=== PATIENT | male | born 1970 | race Caucasian/White ===

== ENCOUNTER 2024-01-02 11:01 | Observation (INO) ==
[2024-01-02 12:12] LABS: Basophils # (auto) 0.08 K/uL (0.00-0.20); Basophils % (auto) 0.9 %; Eosinophils # (auto) 0.04 K/uL (0.00-0.50); Eosinophils % (auto) 0.4 %; Hematocrit (blood only) 47.8 % (42.0-52.0); Hemoglobin 16.8 g/dl (14.0-18.0); Immature Granulocytes # (auto) 0.02 K/uL (0.01-0.20); Immature Granulocytes % (auto) 0.2 %; Lymphocytes # (auto) 1.74 K/uL (1.20-3.40); Lymphocytes % (auto) 19.3 %; Mean Corpuscular Hemoglobin 31.3 pg (25.0-34.0); Mean Corpuscular Hgb Conc 35.1 g/dL (32.0-36.0); Mean Corpuscular Volume 89.2 fL (80.0-100.0); Mean Platelet Volume 10.5 fL (9.4-12.4); Monocytes # (auto) 0.75 K/uL (0.11-0.59); Monocytes % (auto) 8.3 %; Neutrophils # (auto) 6.39 K/uL (1.40-6.50); Neutrophils % (auto) 70.9 %; Platelet Count 264 K/uL (130-400); RDW Coefficient of Variation 12.9 % (11.5-14.5); RDW Standard Deviation 42.1 fL (36.4-46.3); Red Blood Count 5.36 M/uL (4.70-6.10); White Blood Count 9.02 K/ul (4.8-10.8)
[2024-01-02 12:31] LABS: Albumin Globulin Ratio 1.7 (0.9-2); Albumin Level 5.1 gm/dl (3.4-5.0); BUN Creatinine Ratio 21.9 (10-20); Bilirubin,Total 0.7 mg/dl (0.2-1.0); Calcium 10.5 mg/dl (8.6-10.3); Creatinine Clr Calc Pharmacy 110.8 ml/min; Est GFR (African American) 94.8 ml/min; Est GFR (Non-African American) 81.8 ml/min; Total Protein 8.1 gm/dl (6.0-8.3)
--- NOTE | 2024-01-02 12:33 | Emergency Department Note ---
Impression & Plan Near syncope, Shortness of breath ED Provider Note HISTORY OF PRESENT ILLNESS: Patient is a 53-year-old male presenting with lightheadedness and shortness of breath. Patient reports for the last week he has been having episodes in which she gets short of breath with very minimal exertion and feels very lightheaded. Reports that he gets very diaphoretic during these episodes. Reports that 48 hours ago, he was using an ax to cut down a tree and became very diaphoretic, short of breath and lightheaded like he was going to pass out. Reports his symptoms lasted for about 30 to 45 minutes. He denies any chest pain with the episodes. He denies any history of cardiac stents. He states that he was in the shower today when he had another episode of feeling very lightheaded like he was going to pass out and very short of breath. Symptoms lasted for about an hour, and he decided to come to the emergency department. On arrival, he is symptom-free. He denies any DVT or PE history. He is not on any anticoagulation. He does report a significant family history of his father having a heart attack in his early 40s. Patient has a history of hypertension and hyperlipidemia. He denies any recent changes in medications. He is a daily smoker. Denies any recent headache or changes in vision. Denies any numbness or tingling or weakness in extremities. Denies any abdominal pain, nausea or vomiting. Patient reports he has not had a stress test in over 20 years. ROS: as above PHYSICAL EXAM: Constitutional: Patient appears in no acute distress. HENT: Head: Normocephalic and atraumatic. Eyes: EOMI, PERRL Mouth/Throat: Mucous membranes moist. Neck: Trachea midline. Neck supple. Cardiovascular: RRR, No murmurs, rubs or gallops. Intact distal pulses. Pulmonary/Chest: No respiratory distress. Breath sounds clear and equal bilaterally. No wheezes or rales Abdominal: Abdomen soft, no tenderness, rebound or guarding. Musculoskeletal: No edema, tenderness or deformity noted. Skin: Warm and dry. No rash, erythema, pallor or cyanosis Psychiatric: Appropriate mood and affect for situation. Neurological: Alert and keenly responsive. CN II-XII grossly intact, moving all extremities equally and fully. MDM: - Vitals signs stable. - History obtained via patient. History as above. - Chronic conditions affecting care: HTN; HLD - Differential diagnoses include, but are not limited to: Acute coronary syndrome; pulmonary embolism; dissection; tension pneumothorax; esophageal rupture; pneumonia - Order placed for continuous cardiac monitoring. At this time, monitor showed rate of 84 bpm with normal sinus rhythm, per my interpretation. - External medical records reviewed. - EKG interpreted by myself showed normal sinus rhythm. Rate 73 bpm. QT 354. No acute ischemic changes. - Laboratory workup interpreted by myself showed normal WBC; normal PT/INR; negative dimer; normal troponin; stable electrolytes; negative Lyme disease - COVID/flu/RSV negative - CXR negative for pneumonia, per my interpretation - Considered CTA chest for PE or dissection, but patient is low risk by Wells criteria and has a negative D-dimer. So though CT was considered was not obtained. - HEART score 5 (History +2 highly suspicious; EKG +0; Age +1; Risk factors +2; Initial troponin +0), amounting to a moderate score. - Repeat troponin within normal limits. - Discussed results with the patient. He has not had a stress test or echocardiogram of his heart performed in a number of years. He does have a moderate HEART score and his story is slightly concerning. Will admit for further workup. Patient was agreeable to this plan. - Discussion was had with manager rn case about patient's case and need for admission - Hospitalist consulted for admission - Patient admitted to [facility] service for further evaluation and management. ASSESSMENT AND PLAN: Diagnosis: Near syncope; shortness of breath Plan: admit Past Med/Surg History Problem List (Updated 01/02/24 @ 16:07 by Lore Pyle MD) Shortness of breath (Acute) Near syncope (Acute) Social History Smoking Status: Never smoker Feels Safe at Home: Yes Allergies Allergies Allergy/AdvReac Type Severity Reaction Status Date / Time No Known Allergies Allergy Unverified 01/02/24 14:50 Home Meds Home Medications Medication Instructions Recorded Confirmed baclofen 20 mg tablet 20 mg PO 01/02/24 01/02/24 escitalopram oxalate 20 mg tablet 20 mg PO QA 01/02/24 01/02/24 lisinopril 10 mg tablet 10 mg PO QAM 01/02/24 01/02/24 multivitamin 1 tab PO QAM 01/02/24 01/02/24 pravastatin 20 mg tablet 20 mg PO HS 01/02/24 01/02/24 Results & Data (ED) Vital Signs Vital Signs - 24 hr 01/02/24 11:12 01/02/24 12:26 01/02/24 12:26 Temperature 36.9 C Temperature Source Temporal Artery Scan Pulse Rate 82 Pulse Rate [Apical] 68 Pulse Rhythm Regular Pulse Strength Normal Respiratory Rate 20 17 Respiratory Effort / Characteristics Non-Labored Spontaneous Non-Labored Spontaneous Respiratory Depth Normal Normal Respiratory Pattern Regular Blood Pressure 128/90 Blood Pressure [Right Arm] 137/96 Blood Pressure Mean 102 Blood Pressure Mean [Right Arm] 109 Blood Pressure Position Sitting Blood Pressure Position [Right Arm] Semi-fowlers Pulse Oximetry 92 100 100 Oxygen Delivery Method Room Air Room Air Room Air Sepsis Recent Fever Within 48 Hours No Sepsis New/Unexplained Change in Mental Status N/A Sepsis Action Taken by Nursing No Action Required 01/02/24 12:26 01/02/24 12:34 01/02/24 14:33 Temperature Temperature Source Pulse Rate 67 65 Pulse Rate [Apical] 69 Pulse Rhythm Pulse Strength Respiratory Rate 22 17 Respiratory Effort / Characteristics Non-Labored Spontaneous Respiratory Depth Normal Respiratory Pattern Blood Pressure Blood Pressure [Right Arm] 151/106 H Blood Pressure Mean Blood Pressure Mean [Right Arm] 121 Blood Pressure Position Blood Pressure Position [Right Arm] Pulse Oximetry 100 98 Oxygen Delivery Method Room Air Room Air Sepsis Recent Fever Within 48 Hours Sepsis New/Unexplained Change in Mental Status Sepsis Action Taken by Nursing Laboratory Data 01/02/24 11:55 01/02/24 11:55 Lab Results 01/02/24 01/02/24 01/02/24 Range/Units 11:55 11:55 11:57 WBC 9.02 (4.8-10.8) K/ul RBC 5.36 (4.70-6.10) M/uL Hgb 16.8 (14.0-18.0) g/dl Hct 47.8 (42.0-52.0) % MCV 89.2 (80.0-100.0) fL MCH 31.3 (25.0-34.0) pg MCHC 35.1 (32.0-36.0) g/dL RDW Std Deviation 42.1 (36.4-46.3) fL RDW Coeff of Donald 12.9 (11.5-14.5) % Plt Count 264 (130-400) K/uL MPV 10.5 (9.4-12.4) fL Immature Gran % (Auto) 0.2 % Neut % (Auto) 70.9 % Lymph % (Auto) 19.3 % [place] % (Auto) 8.3 % Eos % (Auto) 0.4 % Baso % (Auto) 0.9 % Neut # (Auto) 6.39 (1.40-6.50) K/uL Lymph # (Auto) 1.74 (1.20-3.40) K/uL [place] # (Auto) 0.75 H (0.11-0.59) K/uL Eos # (Auto) 0.04 (0.00-0.50) K/uL Baso # (Auto) 0.08 (0.00-0.20) K/uL Immature Gran # (Auto) 0.02 (0.01-0.20) K/uL PT 10.9 (9.0-12.0) Seconds INR 1.0 (0.9-1.1) APTT 25 (21-31) Seconds PTT Ratio 0.9 D-Dimer 240 Cancelled (0-500) ug/L FEU Sodium 138 (136-145) mmol/L Potassium 4.0 (3.5-5.1) mmol/L Chloride 107 (98-107) mmol/L Carbon Dioxide 23 (21-32) mmol/L Anion Gap 8 (3-11) BUN 23 (6-23) mg/dl Creatinine 1.05 (0.6-1.4) mg/dl Est Cr Clr Drug Dosing 110.8 ml/min Est GFR ( Amer) 94.8 ml/min Est GFR (Non-Af Amer) 81.8 ml/min BUN/Creatinine Ratio 21.9 H (10-20) Glucose 114 H (70-99(Fasting)) mg/dl Calcium 10.5 H (8.6-10.3) mg/dl Total Bilirubin 0.7 (0.2-1.0) mg/dl AST 26 (13-39) U/L ALT 27 (7-52) U/L Alkaline Phosphatase 48 (34-104) U/L Troponin I High Sens 2.6 (0-20) pg/ml Total Protein 8.1 (6.0-8.3) gm/dl Albumin 5.1 H (3.4-5.0) gm/dl Globulin 3.0 (2.5-4.0) gm/dl Albumin/Globulin Ratio 1.7 (0.9-2) Lyme Disease Screen Negative (Negative) SARS-CoV-2 (PCR) NEGATIVE (Negative) Influenza Type A (PCR) Negative (Neg) Influenza Type B (PCR) Negative (Neg) RSV (RT-PCR) Negative (Neg) 01/02/24 Range/Units 14:35 WBC (4.8-10.8) K/ul RBC (4.70-6.10) M/uL Hgb (14.0-18.0) g/dl Hct (42.0-52.0) % MCV (80.0-100.0) fL MCH (25.0-34.0) pg MCHC (32.0-36.0) g/dL RDW Std Deviation (36.4-46.3) fL RDW Coeff of Donald (11.5-14.5) % Plt Count (130-400) K/uL MPV (9.4-12.4) fL Immature Gran % (Auto) % Neut % (Auto) % Lymph % (Auto) % [place] % (Auto) % Eos % (Auto) % Baso % (Auto) % Neut # (Auto) (1.40-6.50) K/uL Lymph # (Auto) (1.20-3.40) K/uL [place] # (Auto) (0.11-0.59) K/uL Eos # (Auto) (0.00-0.50) K/uL Baso # (Auto) (0.00-0.20) K/uL Immature Gran # (Auto) (0.01-0.20) K/uL PT (9.0-12.0) Seconds INR (0.9-1.1) APTT (21-31) Seconds PTT Ratio D-Dimer (0-500) ug/L FEU Sodium (136-145) mmol/L Potassium (3.5-5.1) mmol/L Chloride (98-107) mmol/L Carbon Dioxide (21-32) mmol/L Anion Gap (3-11) BUN (6-23) mg/dl Creatinine (0.6-1.4) mg/dl Est Cr Clr Drug Dosing ml/min Est GFR ( Amer) ml/min Est GFR (Non-Af Amer) ml/min BUN/Creatinine Ratio (10-20) Glucose (70-99(Fasting)) mg/dl Calcium (8.6-10.3) mg/dl Total Bilirubin (0.2-1.0) mg/dl AST (13-39) U/L ALT (7-52) U/L Alkaline Phosphatase (34-104) U/L Troponin I High Sens 3.1 (0-20) pg/ml Total Protein (6.0-8.3) gm/dl Albumin (3.4-5.0) gm/dl Globulin (2.5-4.0) gm/dl Albumin/Globulin Ratio (0.9-2) Lyme Disease Screen (Negative) SARS-CoV-2 (PCR) (Negative) Influenza Type A (PCR) (Neg) Influenza Type B (PCR) (Neg) RSV (RT-PCR) (Neg) Imaging Data Radiologist's Impression: Chest X-Ray 01/02/24 11:15 XR chest 1V portable CLINICAL HISTORY: Chest pain, nonspecific TECHNIQUE: Single frontal radiograph of the chest was obtained. Comparison: None available at the time of this dictation. FINDINGS: No lines and tubes are seen. The cardiomediastinal silhouette is normal. The lungs are clear. No evidence of pleural effusion or pneumothorax. IMPRESSION: No acute chest disease. ACT 112: Negative or not required by law. Electronically signed by: Quincy Cornelius M.D. 01/02/2024 12:53 PM Discharge Plan Visit Data Chief Complaint: Lethargic Stated Complaint: LETHARGIC, WEAKNESS ED Provider: Lore Pyle Discharge Problem: Near syncope, Shortness of breath Forms Stand Alone Forms: My [facility] [address] Prescriptions Prescriptions: No Action multivitamin Tablet 1 tab PO QAM baclofen 20 mg tablet 20 mg PO HS lisinopril 10 mg tablet 10 mg PO QAM pravastatin 20 mg tablet 20 mg PO HS escitalopram oxalate 20 mg tablet 20 mg PO QAM Referrals Referrals: PCP,NO [Physician] -
[2024-01-02 12:37] LABS: Troponin I High Sensitivity 2.6 pg/ml (0-20)
[2024-01-02 12:42] LABS: D Dimer 240 ug/L FEU (0-500); Partial Thromboplastin Ratio 0.9; Partial Thromboplastin Time 25 Seconds (21-31); Prothrombin Time 10.9 Seconds (9.0-12.0)
[2024-01-02 12:43] LABS: Influenza A virus by PCR Negative (Neg); Influenza B virus by PCR Negative (Neg); RSV by PCR Negative (Neg); SARS CoV2 RNA(COVID-19) Ceph NEGATIVE (Negative)
--- NOTE | 2024-01-02 12:55 | XRay Report ---
XR chest 1V portable CLINICAL HISTORY: Chest pain, nonspecific TECHNIQUE: Single frontal radiograph of the chest was obtained. Comparison: None available at the time of this dictation. FINDINGS: No lines and tubes are seen. The cardiomediastinal silhouette is normal. The lungs are clear. No evid ence of pleural effusion or pneumothorax. IMPRESSION: No acute chest disease. ACT 112: Negative or not required by law. Electronically signed by: Quincy Cornelius M.D. 01/02/2024 12:53 PM
--- NOTE | 2024-01-02 16:25 | History & Physical Report ---
Date of Service January 02, 2024 Assessment & Plan (1) Near syncope: Plan: This is a 53-year-old male with PMH of HTN, hyperlipidemia, generalized anxiety disorder, chronic back pain and other medical problems listed below who presents with exertional near syncope. Two episodes of sudden onset lightheadedness, diaphoresis, fatigue and intermittent palpitations with exertion over the past few days, resolves with rest H/o HTN, HLD, + family hx WI (dad in his 50s) EKG with NSR, no ST changes. HS troponin negative x 2 Observe overnight given exertional nature of symptoms, risk factors Orthostatics, 2D echo, trend troponin, a1c and lipids in AM, routine cards consult TSH, anaplasma pending (lyme screen negative) (2) HTN (hypertension): Plan: Elevated in ED, admittedly anxious. Continue evening lisinopril, ? withdrawal component (3) HLD (hyperlipidemia): Plan: Continue pravastatin HS (4) Alcohol use disorder: Plan: Endorsing 5 shots/night over the past 6 months. Denies issues with withdrawal in the past but does not know last day he did not drink. AWSS protocol, ativan PRN (5) Anxiety: Plan: Worsening over past few months, drinking more alcohol. Continue SSRI. Discussed following up with PCP following hospitalization (6) Chronic back pain: Plan: At baseline. Continue baclofen HS DVT Ppx: SQ heparin Code status: FULL PCP: Jose Dispo: SQ heparin Patient seen in collaboration with Dr. Blanco. Please see addendum. I spent a total of 75 minutes coordinating, documenting, and providing care for this patient excluding time spent in the performance of separately billed services. History of Present Illness Chief Complaint: Near syncope Primary Care Provider: Sidney Garcia This is a 53-year-old male with PMH of HTN, hyperlipidemia, generalized anxiety disorder, chronic back pain, alcohol use and other medical problems listed below who presents with exertional near syncope. Started to feel poorly 2 days ago whe n trying to remove a tree stump. Developed sudden sweats, lightheadedness and fatigue and had to sit down. No CP, palpitations or nausea. Sat down and symptoms resolved within the hour. Today patient was getting into the shower and he felt lightheaded and shaky. No fever, chills, nausea, vomiting, abd pain, dysuria or constipation. Had a few episodes of diarrhea since yesterday. Having more stress since retiring at the start of 2023 and has feeling more anxious. Endorses a tick bite a month ago but says he tested negative for lyme. Vapes nicotine. Drinks 2 mixed drinks / night, approx 5 shots. Does not remember his last day without alcohol. Allergies Allergy/AdvReac Type Severity Reaction Status Date / Time No Known Allergies Allergy Unverified 01/02/24 14:50 Home Medications Medication Instructions Recorded Confirmed Type baclofen 20 mg tablet 20 mg PO HS 01/02/24 01/02/24 History escitalopram oxalate 20 mg tablet 20 mg PO QAM 01/02/24 01/02/24 History lisinopril 10 mg tablet 10 mg PO HS 01/02/24 01/02/24 History multivitamin 1 tab PO HS 01/02/24 01/02/24 History pravastatin 20 mg tablet 20 mg PO HS 01/02/24 01/02/24 History Past Med/Surg History Problem List (Updated 01/02/24 @ 17:29 by Samia Vásquez PA-C) Alcohol use disorder Anxiety Chronic back pain Tobacco use HLD (hyperlipidemia) HTN (hypertension) Shortness of breath (Acute) Near syncope (Acute) Surgical History (Updated 01/02/24 @ 17:01 by Samia Vásquez PA-C) History of dental surgery Hx of appendectomy Family History Other Heart disease Social History Tobacco Type: E-cigarettes / Vaping Hx Alcohol Use: Yes Alcohol type: hard liquor Alcohol type Comment: 5 shots a night Hx Substance Use: No Feels Safe at Home: Yes Review of Systems Review of Systems: At least ten systems reviewed and negative except as noted in the HPI. Physical Exam Physical Exam: General Appearance: WD/WN, vitals as above, NAD, sitting up in bed, pleasant, conversing easily, anxious, flushed Head: normocephalic, atraumatic Eyes: normal inspection, PERRL, conjunctivae normal, anicteric sclerae ENT: external ear and nose normal, oropharynx normal Neck: normal visual inspection, trachea midline, no thyromegaly Respiratory: normal respiratory effort, lungs clear to auscultation, no wheeze, rales, rhonchi. No accessory muscle use Cardiovascular: regular rate, rhythm, no murmur, normal peripheral pulses, no BLE edema. Vessels: no JVD Chest: normal inspection of chest Abdomen/GI: normal bowel sounds, soft, nontender, no hepatosplenomegaly Extremities/Musculoskeletal: no cyanosis or clubbing, extremities motor strength 5/5 Neurologic: PERRL, EOMI, accommodation nl, no face palsy, no dysarthria, CN's II-XI intact bilaterally and moves all extremities Psychiatric: A+Ox3, anxious Skin: no rashes, normal color, warm/dry Results & Data Results & Data Vital Signs (Past 12 Hours) Vital Signs Temp Pulse Pulse Resp BP BP Pulse Ox 01/02/24 16:00 76 16 98 01/02/24 15:00 85 19 92 01/02/24 14:33 72 16 151/106 H 99 01/02/24 14:33 69 17 151/106 H 98 01/02/24 14:00 64 16 98 01/02/24 13:03 78 19 97 01/02/24 12:42 71 22 99 01/02/24 12:34 65 01/02/24 12:26 67 22 100 01/02/24 12:26 68 17 137/96 100 01/02/24 12:26 100 01/02/24 11:12 36.9 C 82 20 128/90 92 O2 Del Method 01/02/24 16:00 01/02/24 15:00 01/02/24 14:33 01/02/24 14:33 Room Air 01/02/24 14:00 01/02/24 13:03 01/02/24 12:42 01/02/24 12:34 01/02/24 12:26 Room Air 01/02/24 12:26 Room Air 01/02/24 12:26 Room Air 01/02/24 11:12 Room Air Laboratory Results Short CBC 01/02/24 Range/Units 11:55 WBC 9.02 (4.8-10.8) K/ul Hgb 16.8 (14.0-18.0) g/dl Hct 47.8 (42.0-52.0) % Plt Count 264 (130-400) K/uL BMP 01/02/24 11:55 Sodium 138 Potassium 4.0 Chloride 107 Carbon Dioxide 23 BUN 23 Creatinine 1.05 Glucose 114 H Calcium 10.5 H Liver Function 01/02/24 Range/Units 11:55 Total Bilirubin 0.7 (0.2-1.0) mg/dl AST 26 (13-39) U/L ALT 27 (7-52) U/L Alkaline Phosphatase 48 (34-104) U/L Albumin 5.1 H (3.4-5.0) gm/dl Diagnostic Findings Chest X-Ray 01/02/24 11:15 XR chest 1V portable CLINICAL HISTORY: Chest pain, nonspecific TECHNIQUE: Single frontal radiograph of the chest was obtained. Comparison: None available at the time of this dictation. FINDINGS: No lines and tubes are seen. The cardiomediastinal silhouette is normal. The lungs are clear. No evidence of pleural effusion or pneumothorax. IMPRESSION: No acute chest disease. ACT 112: Negative or not required by law. Electronically signed by: Quincy Cornelius M.D. 01/02/2024 12:53 PM Supervising Physician Co-Signing Physician Notes 53 yo M w/ pmh of HTN, HLD, anxiety, alcohol abuse (5 shots of rum a day) presented to the ED w/ c/o shakiness/palpitation/lightheadedness/sob/near syncope x 2 since Saturday both of which during 5-10 minutes into activity (chopping wood) and resolved after resting 20-30 minutes. He didn't fall or lost consciousness. Denies chest pain or discomfort. Has significant family h/o father having [place] at age 48. labs and CXR wnl Trop x 2 neg, trend trops,get echo. ortho vitals. NPO midnight. Card consult. c/w tele monitoring. EKG and nitro prn w/ chest pain. Lipid profile and a1c in AM. AWSS protocol. c/w home BP and anxiety medications. on Exam: GENERAL: Alert and oriented x3. NAD, on RA. HEENT: No pallor, no icterus. Pupils equal, round and reactive to light. Oral mucosa moist. NECK: No JVD, no neck masses. HEART: S1 and S2 heard. Regular rate and rhythm. No murmur, no gallop. RESPIRATORY SYSTEM: Normal AP diameter. No accessory muscle use. No wheezing, no crackles. ABDOMEN: Soft, bowel sounds present, nontender, no distention. CENTRAL NERVOUS SYSTEM: No facial droop. Speech is clear. Obeys simple commands. Moves extremities. EXTREMITIES: No edema, no erythema seen. I have seen and examined the patient and have discussed the case with the provider above. I agree with the assessment and plan as stated.
[2024-01-02] MEDS ORDERED: LORazepam 1 MG TAB PO PRN (17:21)
[2024-01-02 17:37] LABS: Troponin I High Sensitivity 2.7 pg/ml (0-20)
--- NOTE | 2024-01-02 17:49 | Electrocardiogram Report ---
Test Reason : Blood Pressure : / mmHG Vent. Rate : 073 BPM Atrial Rate : 073 BPM P-R Int : 148 ms QRS Dur : 078 ms QT Int : 354 ms P-R-T Axes : 068 015 037 degrees QTc Int : 389 ms Normal sinus rhythm Normal ECG No previous ECGs available Confirmed by Federico He ([id number]) on 01/02/2024 5:49:33 PM Referred By: REFERRED SELF Confirmed By:Cj He
[2024-01-02 17:57] LABS: Thyroid Stimulating Hormone 1.072 uIu/ml (0.300-4.500)
[2024-01-02] MEDS ORDERED: ACETAMINOPHEN 325 MG TAB PO PRN (17:58)
[2024-01-02] MEDS ORDERED: POLYETHYLENE (MIRALAX) 17 GM PACK PO PRN (17:58)
[2024-01-02 18:24] LABS: Appearance Urine Clear (Clear); Bacteria Urine Automated None Seen (None Seen); Bilirubin Urine Negative (Negative); Blood Urine Negative (Negative); Cast Urine Automated 0-2 /lpf (0-2); Color Urine Dark Yellow; Epithelial Cell Urine Auto 0-2 /hpf (0-2); Glucose Urine UA Negative (Negative); Ketones Urine 2+ (Negative); Leukocyte Esterase Urine Trace (Negative); Nitrite Urine Negative (Negative); Protein Urine Trace (Negative); Specific Gravity Urine 1.031 (1.000-1.030); Urobilinogen Urine Negative (Negative); WBC Urine Automated 0-5 /hpf (0-5)
[2024-01-02 18:40] LABS: Calcium Oxalate Crystals Urine Present (None Prsent)
[2024-01-02 18:41] LABS: Mucus Urine Present (None Prsent)
[2024-01-02] MEDS: MULTIVITAMIN TAB PO SCH (21:06)
[2024-01-02] MEDS: PRAVASTATIN SOD 20 MG TAB PO SCH (21:06)
[2024-01-02] MEDS: BACLOFEN 20 MG TAB PO SCH (21:06)
[2024-01-02] MEDS: lisinopril 10 MG TAB PO SCH (21:06)
[2024-01-02] MEDS: HEPARIN SOD 5,000 UNIT/0.5 ML VIAL SQ SCH (21:07)
[2024-01-03 07:19] LABS: Hemoglobin 15.9 g/dl (14.0-18.0); Mean Corpuscular Hemoglobin 31.4 pg (25.0-34.0); Mean Corpuscular Hgb Conc 34.6 g/dL (32.0-36.0); Mean Corpuscular Volume 90.7 fL (80.0-100.0); Mean Platelet Volume 10.4 fL (9.4-12.4); Platelet Count 251 K/uL (130-400); RDW Standard Deviation 42.9 fL (36.4-46.3); Red Blood Count 5.07 M/uL (4.70-6.10)
[2024-01-03 07:34] LABS: BUN Creatinine Ratio 22.1 (10-20); Calcium 9.6 mg/dl (8.6-10.3); Chol HDL Ratio 2.9 (0-5); Creatinine Clr Calc Pharmacy 111.3 ml/min; Est GFR (African American) 95.9 ml/min; Est GFR (Non-African American) 82.7 ml/min; Potassium 3.5 mmol/L (3.5-5.1)
[2024-01-03 07:44] LABS: Estimated Average Glucose 114 mg/dl; Hemoglobin A1C 5.6 % (4.5-5.6)
--- NOTE | 2024-01-03 09:04 | Cardiology Consultation ---
Date of Consultation January 03, 2024 Assessment & Plan (1) Lightheadedness: (2) Dehydration: (3) HTN (hypertension): (4) Shortness of breath: Plan Patient admitted for spells of weakness and lightheadedness. Probable dehydration as he was working in the heat with poor PO intake of water. Normal EKG on admission HS troponin negative x4 No arrhythmias on telemetry. Echo with preserved LVEF, no wall motion abnormalities and no valvular disease. BP elevated on arrival, but trending down with oral home lisinopril. Consider outpatient ZIO given palpitations and dizziness. He does report SOB with activity over the last few months. No acute findings on admission. Consider ischemic work up. Patient ate breakfast this morning. Consider outpatient exercise stress echocardiogram given risk factors for CAD including family history of premature CAD/sudden , hypertension, dyslipidemia. Smoking cessation encouraged. Reduction in alcohol encouraged. Hydration encouraged. Case to be discussed with Dr. Herrera I spent a total of 60 minutes on the date of service in preparation, delivery, and documentation of the care provided to this patient, excluding any time spent in the performance of separately billed services. Cele Melchor PA-C Department of Cardiology, [facility] This chart was completed in part utilizing Speech Voice Recognition Software. Grammatical errors, random word insertions, pronoun errors, and incomplete sentences are an occasional consequence of this system due to software limitations, ambient noise, and hardware issues. Any formal questions or concerns about the content, text, or information contained within the body of this dictation should be directly addressed to the provider for clarification. Supervising Physician Co-Signing Physician Notes I have personally performed a history and physical examination on the patient. I have reviewed the advance practitioner's documentation, and I agree with, and take responsibility for the plan of care. 53-year-old male present to the emergency department due to weakness, fatigue, and shortness of breath associated with working in his yard. [place] degree of symptoms was disproportionate to the amount of work he had performed. He had been attempting to remove a stump in the high heat (90 degrees). Denies chest discomfort or heaviness. In general he is able to climb stairs, complete activities of daily living without restriction. 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 Denies palpitations, orthopnea, PND, lower extreme edema, or claudication. Pulm tobacco abuse and current vaping noted. Voices concern regarding family history of coronary disease. Initial evaluation including ECG, cardiac enzymes, and echocardiogram unremarkable. Exercise stress echo ordered. Further recommendations pending result. Addendum: Exercise stress echo negative for inducible ischemia at high workload. No anginal symptoms reported. No further inpatient cardiac testing or intervention recommended at this time. Patient may be discharged from a cardiovascular perspective. I spent a total of 35 minutes on the date of service in preparation, delivery, and documentation of the care provided to this patient, excluding any time spent in the performance of separately billed services. History of Present Illness Reason for Consultation: Dizziness; Near syncope Requesting Physician: Ms. Samia Vásquez PA-C Attending Physician: Dr. Herrera History of Present Illness Patient is a 53 year old male who presents to [facility] ER yesterday with complaints of lightheadedness and 2 near syncopal spells. History includes: 1. Hypertension 2. dyslipidemia 3. Anxiety 4. Chronic alcohol abuse 5. Vape user No prior cardiac history. Patient reports alot of activity over the last 2 days as he was trying to remove a large tree stump in his yard. He was working for about 10 minutes and suddenly felt fatigued, weak and dizzy. He went to sit down and symptoms resolved. the following day he was back out trying to remove the stump and similar symptoms occurred. He denied exertional chest pain. He admits to chronic SOB with activity and attributes this to being "out of shape" and chronic vaping. he admits to intermittent palpitations with the activities as well. No true syncope. He admits to daily alcohol use and no significant water intake. he drinks coffee and soda. Upon arrival to ER, EKG demonstrated NSR. HS troponin has been negative x4. Urine and lab findings consistent with probable dehydration. Echo completed and demonstrated normal LVEF, no wall motion abnormalities. No significant valvular disease. Patient reports tick bite several weeks ago. Lyme screen was negative. Other tick borne screening is pending. At time of consult, patient resting in bed comfortably. Reports feeling better since admission. No dyspnea/CP. No fever or chills. No palpitations. No dizziness. His BP was elevated on arrival, but trending down with oral home lisinopril. Allergies Allergy/AdvReac Type Severity Reaction Status Date / Time No Known Allergies Allergy Unverified 01/02/24 14:50 Home Medications Medication Instructions Recorded Confirmed Type baclofen 20 mg tablet 20 mg PO HS 01/02/24 01/02/24 History escitalopram oxalate 20 mg tablet 20 mg PO QAM 01/02/24 01/02/24 History lisinopril 10 mg tablet 10 mg PO HS 01/02/24 01/02/24 History multivitamin 1 tab PO HS 01/02/24 01/02/24 History pravastatin 20 mg tablet 20 mg PO HS 01/02/24 01/02/24 History Patient History Surgical History (Updated 01/02/24 @ 17:01 by Samia Vásquez PA-C) History of dental surgery Hx of appendectomy Family History Other Heart disease Social History Smoking Status: Former smoker Tobacco Type: E-cigarettes / Vaping Second Hand Exposure: Yes ( smokes); Do You Dip or Chew Tobacco: No; Hx Alcohol Use: Yes Alcohol type: hard liquor Alcohol type Comment: 5 shots a night Hx Substance Use: No Preferred Language: Bolivian Communication Ability: Effective Truck Chauffeur Required: No Beliefs That Will Affect Care: None Current Living Situation: Spouse and Family Other Information That Helps Us Care for You: No Feels Safe at Home: Yes Safety Concerns: Feels Safe At This Time Review of Systems Review of Systems: All systems reviewed & are unremarkable except as noted in HPI & below Physical Exam Constitutional: WD/WN, vitals as above well developed; no acute distress Neck: trachea midline, no thyromegaly Respiratory: normal respiratory effort, lungs clear to auscultation Cardiovascular: Rate/Rhythm: regular rate and regular rhythm Heart Sounds: normal S1 and normal S2; no murmur Vessels: no JVD Extremities: no edema Gastrointestinal (Abdomen): normal bowel sounds, soft, nontender, no hepatosplenomegaly Musculoskeletal: no cyanosis or clubbing, extremities motor strength 5/5 Neurologic: PERRL, EOMI, accommodation nl, no face palsy, no dysarthria Psychiatric: A+Ox3, euthymic affect Results & Data Vital Signs (Past 12 Hours) Vital Signs Temp Pulse Pulse Resp BP Pulse Ox O2 Del Method 01/03/24 07:37 36.7 C 74 20 118/77 99 Room Air 01/03/24 07:32 60 01/03/24 03:43 36.3 C L 56 L 18 123/82 99 Room Air 01/03/24 01:45 77 Laboratory Results Cardiac Enzymes 01/02/24 01/02/24 01/02/24 Range/Units 11:55 14:35 16:48 AST 26 (13-39) U/L Troponin I High Sens 2.6 3.1 2.7 (0-20) pg/ml 01/02/24 Range/Units 22:41 AST (13-39) U/L Troponin I High Sens 3.4 (0-20) pg/ml Coagulation 01/02/24 Range/Units 11:55 PT 10.9 (9.0-12.0) Seconds APTT 25 (21-31) Seconds Lipids 01/03/24 Range/Units 06:55 Triglycerides 109 (0-150) mg/dl Cholesterol 141 (0-200) mg/dl HDL Cholesterol 48 mg/dl Cholesterol/HDL Ratio 2.9 (0-5) CBC 01/02/24 01/03/24 Range/Units 11:55 06:55 WBC 9.02 7.20 (4.8-10.8) K/ul RBC 5.36 5.07 (4.70-6.10) M/uL Hgb 16.8 15.9 (14.0-18.0) g/dl Hct 47.8 46.0 (42.0-52.0) % Plt Count 264 251 (130-400) K/uL Neut # (Auto) 6.39 (1.40-6.50) K/uL Lymph # (Auto) 1.74 (1.20-3.40) K/uL [place] # (Auto) 0.75 H (0.11-0.59) K/uL Eos # (Auto) 0.04 (0.00-0.50) K/uL Baso # (Auto) 0.08 (0.00-0.20) K/uL Comprehensive Metabolic Panel 01/02/24 01/03/24 Range/Units 11:55 06:55 Sodium 138 139 (136-145) mmol/L Potassium 4.0 3.5 (3.5-5.1) mmol/L Chloride 107 105 (98-107) mmol/L Carbon Dioxide 23 28 (21-32) mmol/L BUN 23 23 (6-23) mg/dl Creatinine 1.05 1.04 (0.6-1.4) mg/dl Glucose 114 H 105 H (70-99(Fasting)) mg/dl Calcium 10.5 H 9.6 (8.6-10.3) mg/dl AST 26 (13-39) U/L ALT 27 (7-52) U/L Alkaline Phosphatase 48 (34-104) U/L Total Protein 8.1 (6.0-8.3) gm/dl Albumin 5.1 H (3.4-5.0) gm/dl Intake and Output 01/02/24 01/03/24 01/03/24 22:59 06:59 14:59 Intake Total 250 / 250 Output Total Balance - 250 / 249 Intake: Oral 250 / 250 Output: # Bowel Movements Other: # Unmeasured Voids 07 22 Weight 112 kg 110.9 kg Weight Measurement Method Standing Scale Built in [facility] Diagnostic Findings Telemetry reviewed: NSR in the 's. No arrhyhtmias EKG reviewed from admission 01/02/24: Normal sinus rhythm Normal ECG No previous ECGs available Repeat EKG reviewed from today, 01/03/24: NSR low voltage QRS No acute changes Chest xray on admission: No acute disease process Medications Administered Current Inpatient Medications Acetaminophen (Acetaminophen 325 Mg Tab) 650 mg PO Q4H PRN PRN Reason: Pain or Fever Stop: 02/01/24 17:57 Baclofen (Baclofen 20 Mg Tab) 20 mg PO HS BEENA Stop: 02/01/24 20:59 Last Admin: 01/02/24 21:06 Dose: 20 mg Escitalopram Oxalate (Escitalopram Oxalate 20 Mg Tab) 20 mg PO QAM BEENA Stop: 02/02/24 08:59 Last Admin: 01/03/24 09:22 Dose: 20 mg Heparin Sodium (Porcine) (Heparin Sod 5,000 Unit/0.5 Ml Vial) 5,000 units SQ Q8 BEENA Stop: 02/01/24 21:59 Last Admin: 01/03/24 05:38 Dose: Not Given Multivitamins 10 ml/ Thiamine HCl 100 mg/ Folic Acid 1 mg/Sodium Chloride 1,011.2 mls @ 60 mls/hr IV .[id number] ONE Stop: 01/04/24 01:51 Lisinopril (Lisinopril 10 Mg Tab) 10 mg PO [facility] Stop: 02/01/24 20:59 Last Admin: 01/02/24 21:06 Dose: 10 mg Lorazepam (Lorazepam 1 Mg Tab) 1 mg PO ONE PRN; Protocol PRN Reason: EtoH Withdrawal AWSS 6,7,8,9,10 Multivitamins (Multivitamin Tab) 1 tab PO [facility] Stop: 02/01/24 20:59 Last Admin: 01/02/24 21:06 Dose: 1 tab Polyethylene Glycol (Polyethylene (Miralax) 17 Gm Pack) 17 gm PO DAILY PRN PRN Reason: Constipation Stop: 02/01/24 17:57 Pravastatin Sodium (Pravastatin Sod 20 Mg Tab) 20 mg PO [facility] Stop: 02/01/24 20:59 Last Admin: 01/02/24 21:06 Dose: 20 mg
[2024-01-03] MEDS: ESCITALOPRAM OXALATE 20 MG TAB PO SCH (09:22)
[2024-01-03] MEDS: MULTI-VITAMIN INFUSION 10 ML, THIAMINE HCL 100 MG, FOLIC ACID 1 MG in SODIUM CHLORIDE 0... IV ONE (09:49)
[2024-01-03] MEDS: PERFLUTREN LIPID MICROSPHERE (DEFINITY) IV ONE (13:15)
[2024-01-03] MEDS ORDERED: SODIUM CHLORIDE 0.9% 1,000 ML IV SCH (14:00)
--- NOTE | 2024-01-03 15:12 | Hospitalist Progress Note ---
Date of Service January 03, 2024 Assessment & Plan (1) Near syncope: Plan: This is a 53-year-old male with PMH of HTN, hyperlipidemia, generalized anxiety disorder, chronic back pain and other medical problems listed below who presents with exertional near syncope. Two episodes of sudden onset lightheadedness, diaphoresis, fatigue and intermittent palpitations with exertion over the past few days, resolves with rest H/o HTN, HLD, + family hx MA (dad in his 50s) EKG with NSR, no ST changes. HS troponin negative x 2 01/01 Troponin x 3 negative EKG no signs of acute ischemia or infarct Echocardiogram: EF 55 to 60%, normal LV relaxation, trace tricuspid re gurgitation, left ventricular wall motion is normal, Doppler findings do not suggest pulmonary hypertension Status post stress echo: Normal exercise stress echo Lyme screen: Negative Anaplasmosis and babesiosis PCR: Pending Patient's presentation likely secondary to dehydration He was working under the sun for couple days, without adequate hydration Given IV fluids Patient feels significantly better PCP follow-up in 1 week (2) HTN (hypertension): Plan: Initially blood pressure was elevated, improved Continue usual lisinopril (3) HLD (hyperlipidemia): Plan: Continue pravastatin HS (4) Alcohol use disorder: Plan: No overt signs of alcohol withdrawal (5) Anxiety: Plan: Worsening over past few months, drinking more alcohol. Continue SSRI. Discussed following up with PCP following hospitalization (6) Chronic back pain: Plan: At baseline. Continue baclofen HS DVT Ppx: SQ heparin Code status: FULL PCP: Jose Dispo: PCP follow-up in 1 week Admission and Anticipated Discharge Date Admission Date: January 02, 2024 Subjective Follow-up for palpitations, lightheadedness, etc. Seen resting in bed, comfortable, not in distress, very pleasant States he feels much better overall Denies recurrence of chest pain, palpitations, dizziness, sweating No nausea or vomiting, fevers or chills Has been ambulating in the room with no problems States he is ready for discharge today Review of Systems Review of Systems: all noted and negative except for above Physical Exam Physical Exam: General- oriented x 3, not in distress, speaks in sentences with no effort or accessory muscle use Eyes- anicteric Neck- no JVD Lungs- clear breath sounds bilaterally, no rales/wheezes Heart- normal rate, regular rhythm; no murmurs Abdomen- normal bowel sounds, nondistended, soft, nontender Extremities- no pretibial edema, no calf tenderness Neuro- alert, oriented x 3; no gross focal neurologic deficits Skin- warm & dry Results & Data Results & Data Vital Signs (Past 12 Hours) Vital Signs Temp Pulse Pulse Resp BP Pulse Ox O2 Del Method 01/03/24 12:02 36.8 C 73 20 124/82 97 Room Air 01/03/24 07:37 36.7 C 74 20 118/77 99 Room Air 01/03/24 07:32 60 01/03/24 03:43 36.3 C L 56 L 18 123/82 99 Room Air all noted and reviewed including below
--- NOTE | 2024-01-03 15:29 | Discharge Summary ---
Discharge Summary Date of Service January 03, 2024 Principal Dx & Hospital Course #1 = Principal Diagnosis (1) Near syncope: This is a 53-year-old male with PMH of HTN, hyperlipidemia, generalized anxiety disorder, chronic back pain and other medical problems listed below who presents with exertional near syncope. Two episodes of sudden onset lightheadedness, diaphoresis, fatigue and intermittent palpitations with exertion over the past few days, resolves with rest H/o HTN, HLD, + family hx [place] (dad in his 50s) EKG with NSR, no ST changes. HS troponin negative x 2 01/01 Troponin x 3 negative EKG no signs of acute ischemia or infarct Echocardiogram: EF 55 to 60%, normal LV relaxation, trace tricuspid regurgitation, left ventricular wall motion is normal, Doppler findings do not suggest pulmonary hypertension Status post stress echo: Normal exercise stress echo Lyme screen: Negative Anaplasmosis and babesiosis PCR: Pending Patient's presentation likely secondary to dehydration He was working under the sun for couple days, without adequate hydration Given IV fluids Patient feels significantly better PCP follow-up in 1 week (2) HTN (hypertension): Initially blood pressure was elevated, improved Continue usual lisinopril (3) HLD (hyperlipidemia): Continue pravastatin HS (4) Alcohol use disorder: No overt signs of alcohol withdrawal (5) Anxiety: Worsening over past few months, drinking more alcohol. Continue SSRI. Discussed following up with PCP following hospitalization (6) Chronic back pain: At baseline. Continue baclofen HS DVT Ppx: SQ heparin Code status: FULL PCP: Jose Dispo: PCP follow-up in 1 week Notes For Next Care Provider Medication Changes From Visit None Admission HPI Per Admitting Provider This is a 53-year-old male with PMH of HTN, hyperlipidemia, generalized anxiety disorder, chronic back pain, alcohol use and other medical problems listed below who presents with exertional near syncope. Started to feel poorly 2 days ago when trying to remove a tree stump. Developed sudden sweats, lightheadedness and fatigue and had to sit down. No CP, palpitations or nausea. Sat down and symptoms resolved within the hour. Today patient was getting into the shower and he felt lightheaded and shaky. No fever, chills, nausea, vomiting, abd pain, dysuria or constipation. Had a few episodes of diarrhea since yesterday. Having more stress since retiring at the start of 2023 and has feeling more anxious. Endorses a tick bite a month ago but says he tested negative for lyme. Vapes nicotine. Drinks 2 mixed drinks / night, approx 5 shots. Does not remember his last day without alcohol. Admission Exam Per Admitting Provider General Appearance: WD/WN, vitals as above, NAD, sitting up in bed, pleasant, conversing easily, anxious, flushed Head: normocephalic, atraumatic Eyes: normal inspection, PERRL, conjunctivae normal, anicteric sclerae ENT: external ear and nose normal, oropharynx normal Neck: normal visual inspection, trachea midline, no thyromegaly Respiratory: normal respiratory effort, lungs clear to auscultation, no wheeze, rales, rhonchi. No accessory muscle use Cardiovascular: regular rate, rhythm, no murmur, normal peripheral pulses, no BLE edema. Vessels: no JVD Chest: normal inspection of chest Abdomen/GI: normal bowel sounds, soft, nontender, no hepatosplenomegaly Extremities/Musculoskeletal: no cyanosis or clubbing, extremities motor strength 5/5 Neurologic: PERRL, EOMI, accommodation nl, no face palsy, no dysarthria, CN's II-XI intact bilaterally and moves all extremities Psychiatric: A+Ox3, anxious Skin: no rashes, normal color, warm/dry Discharge Exam General- oriented x 3, not in distress, speaks in sentences with no effort or accessory muscle use Eyes- anicteric Neck- no JVD Lungs- clear breath sounds bilaterally, no rales/wheezes Heart- normal rate, regular rhythm; no murmurs Abdomen- normal bowel sounds, nondistended, soft, nontender Extremities- no pretibial edema, no calf tenderness Neuro- alert, oriented x 3; no gross focal neurologic deficits Skin- warm & dry Updated Medication List Medication Instructions Recorded Confirmed Type baclofen 20 mg tablet 20 mg PO HS 01/02/24 01/02/24 History escitalopram oxalate 20 mg tablet 20 mg PO [facility] 01/02/24 01/02/24 History lisinopril 10 mg tablet 10 mg PO HS 01/02/24 01/02/24 History multivitamin 1 tab PO HS 01/02/24 01/02/24 History pravastatin 20 mg tablet 20 mg PO HS 01/02/24 01/02/24 History Hospital Stay Data Consultations 01/02/24 16:04 ED Decision to Admit Stat 01/02/24 17:23 Consult Cardiology Routine Diagnostic Imagining Performed Laboratory Results WBC 7.20 K/ul (4.8-10.8) 01/03/24 06:55 RBC 5.07 M/uL (4.70-6.10) 01/03/24 06:55 Hgb 15.9 g/dl (14.0-18.0) 01/03/24 06:55 Hct 46.0 % (42.0-52.0) 01/03/24 06:55 MCV 90.7 fL (80.0-100.0) 01/03/24 06:55 MCH 31.4 pg (25.0-34.0) 01/03/24 06:55 MCHC 34.6 g/dL (32.0-36.0) 01/03/24 06:55 RDW Std Deviation 42.9 fL (36.4-46.3) 01/03/24 06:55 RDW Coeff of Donald 13.0 % (11.5-14.5) 01/03/24 06:55 Plt Count 251 K/uL (130-400) 01/03/24 06:55 MPV 10.4 fL (9.4-12.4) 01/03/24 06:55 Immature Gran % (Auto) 0.2 % 01/02/24 11:55 Neut % (Auto) 70.9 % 01/02/24 11:55 Lymph % (Auto) 19.3 % 01/02/24 11:55 [place] % (Auto) 8.3 % 01/02/24 11:55 Eos % (Auto) 0.4 % 01/02/24 11:55 Baso % (Auto) 0.9 % 01/02/24 11:55 Neut # (Auto) 6.39 K/uL (1.40-6.50) 01/02/24 11:55 Lymph # (Auto) 1.74 K/uL (1.20-3.40) 01/02/24 11:55 [place] # (Auto) 0.75 K/uL (0.11-0.59) H 01/02/24 11:55 Eos # (Auto) 0.04 K/uL (0.00-0.50) 01/02/24 11:55 Baso # (Auto) 0.08 K/uL (0.00-0.20) 01/02/24 11:55 Immature Gran # (Auto) 0.02 K/uL (0.01-0.20) 01/02/24 11:55 PT 10.9 Seconds (9.0-12.0) 01/02/24 11:55 INR 1.0 (0.9-1.1) 01/02/24 11:55 APTT 25 Seconds (21-31) 01/02/24 11:55 PTT Ratio 0.9 01/02/24 11:55 D-Dimer 240 ug/L FEU (0-500) 01/02/24 11:55 D-Dimer Cancelled 01/02/24 11:55 Sodium 139 mmol/L (136-145) 01/03/24 06:55 Potassium 3.5 mmol/L (3.5-5.1) 01/03/24 06:55 Chloride 105 mmol/L (98-107) 01/03/24 06:55 Carbon Dioxide 28 mmol/L (21-32) 01/03/24 06:55 Anion Gap 6 (3-11) 01/03/24 06:55 BUN 23 mg/dl (6-23) 01/03/24 06:55 Creatinine 1.04 mg/dl (0.6-1.4) 01/03/24 06:55 Est Cr Clr Drug Dosing 111.3 ml/min 01/03/24 06:55 Est GFR ( Amer) 95.9 ml/min 01/03/24 06:55 Est GFR (Non-Af Amer) 82.7 ml/min 01/03/24 06:55 BUN/Creatinine Ratio 22.1 (10-20) H 01/03/24 06:55 Glucose 105 mg/dl (70-99(Fasting)) H 01/03/24 06:55 Estimat Average Glucose 114 mg/dl 01/03/24 06:55 Hemoglobin A1c 5.6 % (4.5-5.6) 01/03/24 06:55 Calcium 9.6 mg/dl (8.6-10.3) 01/03/24 06:55 Total Bilirubin 0.7 mg/dl (0.2-1.0) 01/02/24 11:55 AST 26 U/L (13-39) 01/02/24 11:55 ALT 27 U/L (7-52) 01/02/24 11:55 Alkaline Phosphatase 48 U/L (34-104) 01/02/24 11:55 Troponin I High Sens 3.4 pg/ml (0-20) 01/02/24 22:41 Total Protein 8.1 gm/dl (6.0-8.3) 01/02/24 11:55 Albumin 5.1 gm/dl (3.4-5.0) H 01/02/24 11:55 Globulin 3.0 gm/dl (2.5-4.0) 01/02/24 11:55 Albumin/Globulin Ratio 1.7 (0.9-2) 01/02/24 11:55 Triglycerides 109 mg/dl (0-150) 01/03/24 06:55 Cholesterol 141 mg/dl (0-200) 01/03/24 06:55 LDL Cholesterol, Calc 71 mg/dl 01/03/24 06:55 VLDL Cholesterol, Calc 22 mg/dl (0-30) 01/03/24 06:55 HDL Cholesterol 48 mg/dl 01/03/24 06:55 Cholesterol/HDL Ratio 2.9 (0-5) 01/03/24 06:55 TSH 1.072 uIu/ml (0.300-4.500) 01/02/24 16:48 Urine Color Dark Yellow 01/02/24 13:34 Urine Appearance Clear (Clear) 01/02/24 13:34 Urine pH 6.0 (4.5-7.5) 01/02/24 13:34 Ur Specific [place] 1.031 (1.000-1.030) H 01/02/24 13:34 Urine Protein Trace (Negative) H 01/02/24 13:34 Urine Glucose (UA) Negative (Negative) 01/02/24 13:34 Urine Ketones 2+ (Negative) H 01/02/24 13:34 Urine Blood Negative (Negative) 01/02/24 13:34 Urine Nitrite Negative (Negative) 01/02/24 13:34 Urine Bilirubin Negative (Negative) 01/02/24 13:34 Urine Urobilinogen Negative (Negative) 01/02/24 13:34 Ur Leukocyte Esterase Trace (Negative) H 01/02/24 13:34 Urine WBC (Auto) 0-5 /hpf (0-5) 01/02/24 13:34 Urine RBC (Auto) 3-5 /hpf (0-2) H 01/02/24 13:34 U Hyaline Cast (Auto) 0-2 /lpf (0-2) 01/02/24 13:34 U Epithel Cells (Auto) 0-2 /hpf (0-2) 01/02/24 13:34 Urine Bacteria (Auto) None Seen (None Seen) 01/02/24 13:34 Calcium Oxalate Crystal Present (None Prsent) A 01/02/24 13:34 Urine Mucus Present (None Prsent) A 01/02/24 13:34 Anaplasma Smear See Comment 01/03/24 08:36 Babesia Smear See Comment 01/03/24 08:36 Lyme Disease Screen Negative (Negative) 01/02/24 11:55 SARS-CoV-2 (PCR) NEGATIVE (Negative) 01/02/24 11:57 Influenza Type A (PCR) Negative (Neg) 01/02/24 11:57 Influenza Type B (PCR) Negative (Neg) 01/02/24 11:57 RSV (RT-PCR) Negative (Neg) 01/02/24 11:57 Impressions Chest X-Ray 01/02/24 11:15 XR chest 1V portable CLINICAL HISTORY: Chest pain, nonspecific TECHNIQUE: Single frontal radiograph of the chest was obtained. Comparison: None available at the time of this dictation. FINDINGS: No lines and tubes are seen. The cardiomediastinal silhouette is normal. The lungs are clear. No evidence of pleural effusion or pneumothorax. IMPRESSION: No acute chest disease. ACT 112: Negative or not required by law. Electronically signed by: Quincy Cornelius M.D. 01/02/2024 12:53 PM Pending Results Patient Have Any Pending Studies at Discharge: Yes Discharge Instructions Given to Patient (Per Discharging Provider) Resume your usual medication regimen. Follow-up with your primary care physician in 1 week. You need to have a monitoring engineer/Zio patch monitor arranged by your primary care physician. Please discuss this with your primary care physician on your follow-up visit. Drink plenty of fluids-at least 6 to 8 glasses/day. No smoking, alcohol. PLEASE CALL YOUR PRIMARY CARE PHYSICIAN OR RETURN TO THE ER IF WITH WORSENING OF SYMPTOMS, INCLUDING Chest pain, shortness of breath, palpitations, dizziness, sweating, etc. FOLLOW UP WITH PRIMARY CARE PHYSICIAN OUTLINED ABOVE. Take care. Total Time Total Time Spent Total Time Spent (In Minutes): 40 minutes
--- NOTE | 2024-01-03 15:31 | Electrocardiogram Report ---
Test Reason : Blood Pressure : / mmHG Vent. Rate : 060 BPM Atrial Rate : 060 BPM P-R Int : 156 ms QRS Dur : 086 ms QT Int : 424 ms P-R-T Axes : 057 016 034 degrees QTc Int : 424 ms Normal sinus rhythm with sinus arrhythmia Low voltage QRS Borderline ECG When compared with ECG of 02-JAN-2024 11:56, No significant change was found Confirmed by Federico He ([id number]) on 01/03/2024 3:30:52 PM Referred By: REFERRED SELF Confirmed By:Cj He
[2024-01-07 01:52] LABS: Babesia microti DNA Not Detected (Not Detected)
== END 2024-01-03 18:32 | disposition home or self-care (01) ==
LOC: EDINP 11:01 → ED 11:01 → SUATTDRO 16:37 → 4W 17:59